=== PATIENT | male | born 1970 | race Caucasian/White ===

== ENCOUNTER 2024-08-22 11:28 | Outpatient (CLI) | payer BC | END 2024-08-22 11:29 | disposition home or self-care (01) | LOC: CSHRAD 11:28 | PROVIDERS: ATTEND Family Medicine | DX: R06.02 Shortness of breath (principal) | CPT/HCPCS: 71046 ==

== ENCOUNTER 2024-10-22 14:06 | Outpatient (CLI) | payer BC | END 2024-10-22 14:07 | disposition home or self-care (01) | LOC: CSHCP 14:06 | PROVIDERS: ATTEND Internal Medicine | DX: J44.89 Other specified chronic obstructive pulmonary disease (principal) | CPT/HCPCS: 94060; 94664; 94726; 94729; 94760 ==